=== PATIENT | male | born 1990 | race Caucasian/White ===

== ENCOUNTER 2023-04-10 11:15 | Emergency (ER) | payer SELFPAY ==
--- OUTSIDE RECORDS SUMMARY | 2023-04-10 11:18 | XMS REPORT | Continuity of Care Document ---
:1990 Author Organization [facility] t Address [address] [place] [address] Care Team Providers Name Role Phone Patricia Hamilton Attending Clinician PATRICIA MORALES Attending Clinician Unavailable Problems Condition Condition Condition Status Onset Resolution Last Treating Co mments Source Name Details Category Date Date Treatment Clinician Date No known No known Disease Unive rs active active ity of problems problems [facility] Allergies, Adverse Reactions, Alerts Allergy Allergy Status Severity Reaction(s) Onset Inactive Treating Comm ents Source Name Type Date Date Clinician NO KNOWN Drug Active Univers ALLERGIE Class it of [facility] Social History Social Habit Start Date Stop Date Quantity Comments [facility] to SARS-CoV[facility]2 [facility] sure [facility] Smoking Status Start Date Stop Date Source Unknown if ever smoked Universit y [facility] Medications Ordered Filled Start Stop Current Ordering Indication Dosage Frequency Signature Comments Components Source Medication Medication Date Date Medication? Clinician (SIG) Name Name No known No Univers medications [facility] Vital Signs Vital Name Observation Time Observation Value Comments Source Heart rate 2020-08-23 03:01:00 93 /min [facility] Body temperature 2020-08-23 03:01:00 37.56 Robyn [facility] Respiratory rate 2020-08-23 03:01:00 16 /min [facility] Body height 2020-08-23 03:01:00 177.8 cm Universi ty [facility] Body weight 2020-08-23 03:01:00 71.442 kg Universi ty [facility] BMI 2020-08-23 03:01:00 22.60 kg/m2 Universi [facility] Oxygen saturation in 2020-08-23 03:01:00 97 /min [facility] Arterial blood by [facility] Pulse oximetry Branch Systolic blood 2020-08-23 03:01:00 111 mm[Hg] Univer sity of pressure [facility] Diastolic blood 2020-08-23 03:01:00 79 mm[Hg] Unive rsity of [facility] Procedures Procedure Date / Time Performed Performing Clinician Sourc e NOTICE OF PRIVACY 2020-08-23 02:52:27 [facility] CONSENT/REFUSAL FOR 2020-08-23 02:47:15 Doctor [facility]igned, [facility] DIAGNOSIS AND Name [facility] TREATMENT Encounters Start End Encounter Admission Attending Care Care Encounter Source Date/Time Date/Time Type Type Clinicians Facility Department ID 2020-08-22 2020-08-[address] [facility] [id number] Univers 21:03:00 21:53:00 Patricia Mcdonald [id number] i ty [facility] [id number] [facility] [id number] [facility] [address] Branch 2020-08-22 2020-08-22 Emergency X [facility] ERT [id number] Univers 21:03:00 21:03:00 PATRICIA alcantar [facility] Results This patient has no known results.
[2023-04-10] MEDS ORDERED: FLUORESCEIN SODIUM 1 MG/WRAP ONE (11:51)
[2023-04-10] MEDS ORDERED: TETRACAINE HCL 0.5% 4ML OPTH ONE (11:51)
--- NOTE | 2023-04-10 11:54 | ER ---
Nurse's Notes [facility] Name: Vel Jean Age: 32 yrs Sex: Male : 1990 Arrival Date: 04/10/2023 Time: 11:15 Bed Treatment Private MD: Diagnosis: Corneal abrasion right eye Presentation: 04/10 11:34 Chief complaint: Patient states: "i was putting a screw into the wall and got something me1 in my right eye.". 11:35 Coronavirus screen: Vaccine status: Patient reports being unvaccinated. At this time, me1 the client does not indicate any symptoms associated with coronavirus-19. Ebola Screen: No symptoms or risks identified at this time. Initial Sepsis Screen: Does the patient meet any 2 criteria? No. Patient's initial sepsis screen is negative. Does the patient have a suspected source of infection? No. Patient's initial sepsis screen is negative. Risk Assessment: Do you want to hurt yourself or someone else? Patient reports no desire to harm self or others. Onset of symptoms was April 10, 2023. 11:35 Method Of Arrival: Ambulatory me1 11:35 Acuity: ANNELIESE 4 me1 Historical: - Allergies: 11:36 No Known Allergies; me1 - Home Meds: 11:36 gabapentin [Active]; me1 - PMHx: 11:36 neuropathy; me1 - Immunization history:: Adult Immunizations unknown. - Social history:: Smoking status: Patient reports the use of cigarette tobacco products, smokes one-half pack cigarettes per day, Patient uses alcohol, on a daily basis. street drugs, marijuana. Screenin:06 [facility] ED Fall Risk Assessment (Adult) Score/Fall Risk Level 0 - 2 = Low Risk. Abuse me1 screen: Denies threats or abuse. Nutritional screening: No deficits noted. Tuberculosis screening: No symptoms or risk factors identified. Assessment: 12:06 General: Appears uncomfortable, Behavior is calm, cooperative, appropriate for age. me1 Pain: Complains of pain in right eye Pain does not radiate. Pain currently is 2 out of 10 on a pain scale. Quality of pain is described as burning, Pain began suddenly, 1 hour ago. Neuro: Level of Consciousness is awake, alert, obeys commands, Oriented to person, place, time, situation, Appropriate for age. Cardiovascular: Capillary refill < 3 seconds Patient's skin is warm and dry. Respiratory: Airway is patent Respiratory effort is even, unlabored, Respiratory pattern is regular, symmetrical. Vital Signs: 11:35 BP 132 / 79; Pulse 63; Resp 18; Temp 98.4(O); Pulse Ox 98% on R/A; Weight 77.11 kg; me1 Height 5 ft. 9 in. ; Pain 2/10; 11:35 Body Mass Index 25.10 (77.11 kg, 175.26 cm) me1 11:35 Pain Scale: Adult me1 ED Course: 11:17 Patient arrived in ED. mg5 11:18 Maikol Zapata DO is Attending Physician. ms3 11:25 Maikol Zapata DO is Attending Physician. snw 11:36 Triage completed. me1 11:36 Arm band placed on Patient placed in waiting room. me1 11:41 Dang Pennington RN is Primary Nurse. ph 11:52 Thony De Leon MD is Referral Physician. ms3 12:06 Patient has correct armband on for positive identification. Bed in low position. Call me1 light in reach. Provided Education on: on POC. Verbalized understanding. . 12:06 No provider procedures requiring assistance completed. Patient did not have IV access me1 during this emergency room visit. Administered Medications: 11:41 Drug: Tetracaine Ophthalmic Drops 0.5 % 1 drops Route: Ophthalmic; Site: right eye; bp 12:08 Follow up: Response: No adverse reaction me1 Medication: 12:06 VIS not applicable for this client. me1 Outcome: 11:54 Discharge ordered by . ms3 12:12 Patient left the ED. me1 12:12 Discharged to home ambulatory. ph 12:12 Condition: good 12:12 Discharge instructions given to patient, Instructed on discharge instructions, follow up and referral plans. medication usage, Demonstrated understanding of instructions, follow-up care, medications, Prescriptions given X 1. Signatures: Cherelle Calloway FNP-C [employer]-Csnw Dang Pennington, RN RN Roderick Florian RN RN bp Maikol Zapata DO DO ms3 Lurdes Paulson RN RN me1 Lexi Diaz mg5
--- NOTE | 2023-04-10 11:54 | EDPHYS ---
Physician Documentation [facility] Name: Vel Jean Age: 32 yrs Sex: Male : 1990 Arrival Date: 04/10/2023 Time: 11:15 Bed Treatment Private MD: ED Physician Maikol Zapata HPI: 04/10 11:55 This 32 yrs old Male presents to ER via Ambulatory with complaints of Foreign Body In ms3 Eye - Right. 11:55 32-year-old male with no past medical history presents for foreign body sensation in ms3 right eye. Patient states he is putting screws in a wall when he got something in his eye. Patient states he washed his eye out. Patient states he can see something in his eye. Patient rates his discomfort 2/10. Patient denies alleviating or inciting factors. Historical: - Allergies: 11:36 No Known Allergies; me1 - Home Meds: 11:36 gabapentin [Active]; me1 - PMHx: 11:36 neuropathy; me1 - Immunization history:: Adult Immunizations unknown. - Social history:: Smoking status: Patient reports the use of cigarette tobacco products, smokes one-half pack cigarettes per day, Patient uses alcohol, on a daily basis. street drugs, marijuana. ROS: 11:55 Constitutional: Negative for fever, and chills. Neck: Negative for injury, pain, and ms3 swelling, Cardiovascular: Negative for chest pain, and palpitations. Respiratory: Negative for shortness of breath, cough, wheezing, and pleuritic chest pain, Abdomen/GI: Negative for abdominal pain, nausea, vomiting, diarrhea, and constipation, MS/Extremity: Negative for injury and deformity, Skin: Negative for injury, rash, and discoloration. 11:55 Eyes: Positive for foreign body sensation. Exam: 11:55 Constitutional: This is a well developed, well nourished patient who is awake, alert, ms3 and in no acute distress. Head/Face: Normocephalic, atraumatic. Neck: Trachea midline, no cervical lymphadenopathy. Supple, full range of motion without nuchal rigidity, or vertebral point tenderness. No Meningismus. 11:55 Eyes: Corneas: abrasion, that is small, at 12 o'clock, foreign body, is not appreciated, a fluorescein strip employed to appreciate the findings, Lids and lashes: no acute changes, no evidence of trauma, Visual alvarez: are intact, Examination of the other eye reveals no obvious gross abnormality. Vital Signs: 11:35 BP 132 / 79; Pulse 63; Resp 18; Temp 98.4(O); Pulse Ox 98% on R/A; Weight 77.11 kg; me1 Height 5 ft. 9 in. ; Pain 2/10; 11:35 Body Mass Index 25.10 (77.11 kg, 175.26 cm) me1 11:35 Pain Scale: Adult me1 MDM: 11:37 Patient medically screened. ms3 11:55 Differential diagnosis: Corneal abrasion of Foreign body in. Differential diagnosis: ms3 Data reviewed: vital signs, nurses notes, and as a result, I will discharge patient. I considered the following discharge prescriptions or medication management in the emergency department Medications were administered in the Emergency Department. See MAR. Counseling: I had a detailed discussion with the patient and/or guardian regarding: the historical points, exam findings, and any diagnostic results supporting the discharge/admit diagnosis, the need for outpatient follow up, to return to the emergency department if symptoms worsen or persist or if there are any questions or concerns that arise at home. Response to treatment: the patient's symptoms have resolved after treatment, and as a result, I will discharge patient. ED course: Patient eye pain resolved after tetracaine and right eye and flushing eye with normal saline. Patient to follow-up with Dr. De Leon in 1 to 2 days. Patient understands agrees with plan. All questions were answered. Return precautions discussed include worsening symptoms, or any other concerns. 04/10 11:38 Order name: Eye Tray; Complete Time: 11:42 ms3 04/10 11:38 Order name: Fluoresene Opth strip; Complete Time: 11:41 ms3 Administered Medications: 11:41 Drug: Tetracaine Ophthalmic Drops 0.5 % 1 drops Route: Ophthalmic; Site: right eye; bp 12:08 Follow up: Response: No adverse reaction me1 Disposition Summary: 04/10/23 11:54 Discharge Ordered Location: Home ms3 Condition: Stable ms3 Diagnosis - Corneal abrasion right eye ms3 Followup: ms3 - With: Thony De Leon MD - When: 1 - 2 days - Reason: Recheck today's complaints Discharge Instructions: - Discharge Summary Sheet ms3 - Corneal Abrasion, [id number] ms3 Forms: - Medication Reconciliation Form ms3 - Thank You Letter ms3 - Antibiotic Education ms3 - Prescription Opioid Use ms3 - Patient Portal Instructions ms3 - Leadership Thank You Letter ms3 - Work release form me1 Prescriptions: - Erythromycin 5 mg/gram (0.5 %) Ophthalmic Ointment - apply 1 centimeter by OPHTHALMIC route 2-3 times daily for 7 days; 1 unit; ms3 Refills: 0, Product Selection Permitted Signatures: Roderick Florian, RN RN bp Maikol Zapata DO DO ms3 Lurdes Paulson, RN RN me1
[2023-04-10 12:32] VITALS: BP 132/79; TEMP 98.4; O2SAT 98
== END 2023-04-10 12:12 | disposition home or self-care (01) ==
LOC: ER 11:15
DX: S05.01XA Injury of conjunctiva and corneal abrasion without foreign body, right eye, initial encounter (principal)
CPT/HCPCS: 99283